=== PATIENT | male | born 1960 | race Caucasian/White ===

== ENCOUNTER 2021-08-25 22:09 | Emergency (ER) | payer OTHER | END 2021-08-25 23:55 | disposition home or self-care (01) | LOC: FER 22:09 | DX: S01.81XA Laceration without foreign body of other part of head, initial encounter (principal); S09.90XA Unspecified injury of head, initial encounter; I10 Essential (primary) hypertension; E11.9 Type 2 diabetes mellitus without complications; Z23 Encounter for immunization; Z79.82 Long term (current) use of aspirin; Z79.84 Long term (current) use of oral hypoglycemic drugs; Z79.899 Other long term (current) drug therapy; W01.190A Fall on same level from slipping, tripping and stumbling with subsequent striking against furniture, initial encounter; Y93.01 Activity, walking, marching and hiking | CPT/HCPCS: 12051; 70450; 90471; 90715 ==